=== PATIENT | female | born 1955 ===

== ENCOUNTER 2017-08-05 13:44 | Outpatient (CLI) | payer OTHER ==
[~2017-08-05] VITALS: Ht 170.2 cm; Wt 78.0 kg
== END 2017-08-05 14:00 | disposition home or self-care (01) ==
LOC: OFIC 805 13:44
DX: K21.9 Gastro-esophageal reflux disease without esophagitis (principal); J34.89 Other specified disorders of nose and nasal sinuses; J31.0 Chronic rhinitis

== ENCOUNTER 2019-01-04 11:17 | Outpatient (CLI) | payer OTHER ==
[~2019-01-04] VITALS: Ht 152.4 cm; Wt 76.7 kg
== END 2019-01-04 11:25 | disposition home or self-care (01) ==
LOC: OFIC 805 11:17
DX: K21.0 Gastro-esophageal reflux disease with esophagitis (principal); J34.89 Other specified disorders of nose and nasal sinuses; J30.89 Other allergic rhinitis

== ENCOUNTER 2019-12-16 09:21 | Outpatient (CLI) | payer OTHER | END 2019-12-16 10:00 | disposition home or self-care (01) | LOC: OFIC 805 09:21 | PROVIDERS: ATTEND Otolaryngology | DX: J30.89 Other allergic rhinitis (principal); J34.89 Other specified disorders of nose and nasal sinuses; K21.0 Gastro-esophageal reflux disease with esophagitis; R49.0 Dysphonia; R07.0 Pain in throat ==

== ENCOUNTER 2019-12-30 12:45 | Outpatient (CLI) | payer OTHER | END 2019-12-30 16:29 | disposition home or self-care (01) | LOC: OFIC 805 12:45 | PROVIDERS: ATTEND Otolaryngology | DX: K21.0 Gastro-esophageal reflux disease with esophagitis (principal); J34.89 Other specified disorders of nose and nasal sinuses; J30.89 Other allergic rhinitis; R49.0 Dysphonia; R07.0 Pain in throat ==

== ENCOUNTER 2020-04-27 09:20 | Outpatient (CLI) | payer OTHER | END 2020-04-27 11:00 | disposition home or self-care (01) | LOC: OFIC 805 09:20 | PROVIDERS: ATTEND Otolaryngology | DX: K21.00 Gastro-esophageal reflux disease with esophagitis, without bleeding (principal); J30.89 Other allergic rhinitis; R07.0 Pain in throat ==

== ENCOUNTER 2023-01-04 09:36 | Emergency (ER) | payer OTHER ==
[~2023-01-04] VITALS: Ht 170.2 cm; Wt 77.1 kg
[2023-01-04] MEDS ORDERED: COZAAR25 MG PO (09:49)
[2023-01-04] MEDS ORDERED: SINVASTATIN (09:50)
== END 2023-01-04 12:06 | disposition home or self-care (01) ==
LOC: ER 09:36
DX: K44.9 Diaphragmatic hernia without obstruction or gangrene (principal); K21.9 Gastro-esophageal reflux disease without esophagitis; R10.9 Unspecified abdominal pain